=== PATIENT | male | born 1925 | race Caucasian/White ===

== ENCOUNTER → 2016-12-26 | Outpatient (CLI) | payer MEDICARE ==
[~2016-12-26] MED LIST: ADVAIR 250-501 EACH INH; ALDACTONE25 MG PO; CYANOCOBAL1000 MCG/1 IM; DIOVAN320 MG PO; EYE DROPS15 ML; FOLBIC RF TABL1 EACH PO; FOLIC ACID1 MG PO; GLUCOPHAGE500 MG PO; HUMIBID LA (MU600 MG; LASIX40 MG PO; LEVOTHROID (SY50 MCG PO; NACL TABS1 GM PO; NORVASC2.5 MG PO; PRILOSEC20 MG PO; PROVENTIL OR V6.7 GM INH; TOPROL XL25 MG PO; ZYLOPRIM300 MG PO
== END ==
LOC: LGSMG 15:10
DX: R68.89 Other general symptoms and signs (principal); R53.81 Other malaise

== ENCOUNTER → 2016-12-27 | Outpatient (CLI) | payer MEDICARE | END | disposition disaster alternative care site (69) | LOC: GRAD 08:24 | DX: D64.9 Anemia, unspecified (principal); K80.20 Calculus of gallbladder without cholecystitis without obstruction; N18.3 Chronic kidney disease, stage 3 (moderate); R68.89 Other general symptoms and signs; R74.0 Nonspecific elevation of levels of transaminase and lactic acid dehydrogenase [LDH]; R53.83 Other fatigue ==

== ENCOUNTER → 2017-01-04 | Outpatient (CLI) | payer MEDICARE | LOC: LGSMG 16:06 | DX: D64.9 Anemia, unspecified (principal); R74.9 Abnormal serum enzyme level, unspecified; B35.3 Tinea pedis; E87.1 Hypo-osmolality and hyponatremia; E11.9 Type 2 diabetes mellitus without complications; I12.9 Hypertensive chronic kidney disease with stage 1 through stage 4 chronic kidney disease, or unspecified chronic kidney disease; E11.22 Type 2 diabetes mellitus with diabetic chronic kidney disease; N18.4 Chronic kidney disease, stage 4 (severe) ==

== ENCOUNTER → 2017-01-05 | Outpatient (CLI) | payer MEDICARE | END | disposition disaster alternative care site (69) | LOC: GRAD 08:42 | DX: N18.4 Chronic kidney disease, stage 4 (severe) (principal); Q61.02 Congenital multiple renal cysts ==

== ENCOUNTER → 2017-01-06 | Outpatient (CLI) | payer MEDICARE | END | disposition disaster alternative care site (69) | LOC: LGSMG 13:50 | DX: E87.1 Hypo-osmolality and hyponatremia (principal); N18.4 Chronic kidney disease, stage 4 (severe) ==

== ENCOUNTER → 2017-01-12 | Day surgery (SDC) | payer MEDICARE ==
[~2017-01-12] VITALS: Ht 167.6 cm; Wt 109.5 kg
== END | disposition disaster alternative care site (69) ==
LOC: GPOC 01-09 16:00 → GEND 06:37 → GPOC 16:00
PROC: 0DB98ZX Excision of Duodenum, Via Natural or Artificial Opening Endoscopic, Diagnostic (ICD-10-PCS; principal; 2017-01-12)
PROC: 0DB68ZX Excision of Stomach, Via Natural or Artificial Opening Endoscopic, Diagnostic (ICD-10-PCS; 2017-01-12)
PROC: 0DBH8ZX Excision of Cecum, Via Natural or Artificial Opening Endoscopic, Diagnostic (ICD-10-PCS; 2017-01-12)
PROC: 0DBN8ZX Excision of Sigmoid Colon, Via Natural or Artificial Opening Endoscopic, Diagnostic (ICD-10-PCS; 2017-01-12)
DX: D12.0 Benign neoplasm of cecum (principal); K29.80 Duodenitis without bleeding; K57.30 Diverticulosis of large intestine without perforation or abscess without bleeding; D50.9 Iron deficiency anemia, unspecified; M19.90 Unspecified osteoarthritis, unspecified site; Z98.41 Cataract extraction status, right eye; D63.8 Anemia in other chronic diseases classified elsewhere; E11.22 Type 2 diabetes mellitus with diabetic chronic kidney disease; I12.9 Hypertensive chronic kidney disease with stage 1 through stage 4 chronic kidney disease, or unspecified chronic kidney disease; N18.4 Chronic kidney disease, stage 4 (severe); E78.5 Hyperlipidemia, unspecified; E03.9 Hypothyroidism, unspecified; J44.9 Chronic obstructive pulmonary disease, unspecified; Z98.42 Cataract extraction status, left eye; Z98.890 Other specified postprocedural states; Z79.899 Other long term (current) drug therapy; Z79.891 Long term (current) use of opiate analgesic
CPT/HCPCS: J2001; J7030